=== PATIENT | female | born 1950 | race Hispanic/Latino ===

== ENCOUNTER 2017-04-24 17:41 | Emergency (ER) | payer MEDICARE, OTHER ==
[2017-04-24 18:57] LABS: BASOPHILS % (AUTO) 0.5 % (0.0-5.0); EOSINOPHILS % (AUTO) 0.1 % (0.0-8.0); LYMPHOCYTES % (AUTO) 13.4 % (21.0-51.0); MEAN CORPUSCULAR HEMOGLOBIN 19.3 pg (27.0-33.0); MEAN CORPUSCULAR HGB CONC 31.6 g/dL (32.0-36.0); MEAN CORPUSCULAR VOLUME 61.1 fL (79-99); MONOCYTES % (AUTO) 2.3 % (3.0-13.0); NEUTROPHILS % (AUTO) 83.7 % (40.0-77.0); PLATELET COUNT (AUTO) 289 K/uL (130-400); RED BLOOD CELL COUNT(AUTO) 5.08 MIL/uL (4.00-5.50); RED CELL DISTRIBUTION WIDTH 18.1 % (11.0-15.5); WHITE BLOOD COUNT (AUTO) 11.6 K/uL (4.8-10.8)
[2017-04-24] MEDS ORDERED: ONDANSETRON HCL 4 MG/2 ML VIAL ONE (19:04)
[2017-04-24 19:07] LABS: CREATININE 3.4 mg/dL (0.5-1.5); POTASSIUM 5.3 mmol/L (3.5-5.1)
[2017-04-24 19:13] LABS: INR 0.96 (0.85-1.15); PARTIAL THROMBOPLASTIN TIME 26.8 SEC (26.3-35.5); PROTHROMBIN TIME 10.1 SEC (9.6-11.6)
[2017-04-24 19:21] LABS: ALBUMIN 2.2 g/dL (3.5-5.0); BILIRUBIN,TOTAL 0.3 mg/dL (0.2-1.0); CREATINE KINASE MB 1.7 ng/mL (0.5-3.6); TOTAL PROTEIN, SERUM 6.8 g/dL (6.0-8.3)
[2017-04-24 19:58] LABS: APPEARANCE,URINE Clear (CLEAR); BILIRUBIN,URINE Negative (NEGATIVE); COLOR,URINE Yellow (YELLOW); GLUCOSE, URINE (UA) >=1000 mg/dL (NEGATIVE); KETONES,URINE 15 mg/dL (NEGATIVE); LEUKOCYTE ESTERASE ,URINE Negative (NEGATIVE); NITRATE,URINE Negative (NEGATIVE); OCCULT BLOOD,URINE Small (NEGATIVE); PROTEIN,URINE >=1000 (NEGATIVE); UROBILINOGEN,URINE 0.2 mg/dL (0.2-1.0)
[2017-04-24 20:19] LABS: BACTERIA,URINE Rare /HPF (None Seen); WBC,URINE 0-1 /HPF (0-1)
[2017-04-24 20:20] LABS: SQUAMOUS EPITHELIAL CELL,UR Rare /LPF (0-2)
== END 2017-04-24 23:40 | disposition home or self-care (01) ==
LOC: EDH 17:41
DX: D64.89 Other specified anemias (principal); N28.9 Disorder of kidney and ureter, unspecified; R11.2 Nausea with vomiting, unspecified; I10 Essential (primary) hypertension; R20.0 Anesthesia of skin
CPT/HCPCS: 36415; 70450; 71045; 80053; 81001; 82150; 82550; 82553; 83690; 83880; 84484; 85025; 85610; 85730; 87804 ×2; 96374; 99285; J2405

== ENCOUNTER → 2017-04-25 | Outpatient (CLI) | payer OTHER ==
[~2017-04-25] MED LIST: AMLO5TAB2 PO; ATOR10 PO; FOLI1TAB15 PO; FURO40TA5 PO; METO-409 PO
== END ==
LOC: OIH 11:32
PROVIDERS: ATTEND Family Medicine
DX: I10 Essential (primary) hypertension (principal)
CPT/HCPCS: 71046

== ENCOUNTER 2017-06-28 09:31 | Inpatient (IN) | payer OTHER ==
[~2017-06-28] VITALS: Ht 147.3 cm; Wt 49.3 kg
[2017-06-28] MEDS ORDERED: LABETALOL HCL 5 MG/ML 20ML VIAL IV ONE (10:11)
[2017-06-28 10:34] LABS: BASOPHILS % (AUTO) 1.2 % (0.0-5.0); EOSINOPHILS % (AUTO) 1.8 % (0.0-8.0); HEMATOCRIT 28.5 % (36-48); MEAN CORPUSCULAR HEMOGLOBIN 19.3 pg (27.0-33.0); MEAN CORPUSCULAR HGB CONC 31.5 g/dL (32.0-36.0); MEAN CORPUSCULAR VOLUME 61.5 fL (79-99); MONOCYTES % (AUTO) 5.8 % (3.0-13.0); NEUTROPHILS % (AUTO) 72.2 % (40.0-77.0); PLATELET COUNT (AUTO) 244 K/uL (130-400); RED BLOOD CELL COUNT(AUTO) 4.64 MIL/uL (4.00-5.50); RED CELL DISTRIBUTION WIDTH 17.3 % (11.0-15.5); WHITE BLOOD COUNT (AUTO) 7.9 K/uL (4.8-10.8)
[2017-06-28 10:47] LABS: B-TYPE NATRIURETIC PEPTIDE 200 pg/mL (0-100)
[2017-06-28 10:57] LABS: ALBUMIN 2.2 g/dL (3.5-5.0); BILIRUBIN,TOTAL 0.3 mg/dL (0.2-1.0); CREATINE KINASE MB 1.6 ng/mL (0.5-3.6); CREATININE 3.6 mg/dL (0.5-1.5); TOTAL PROTEIN, SERUM 6.4 g/dL (6.0-8.3)
[2017-06-28 11:05] LABS: POTASSIUM 6.2 mmol/L (3.5-5.1)
[2017-06-28] MEDS ORDERED: CALCIUM GLUCONATE 1 GM/10 ML VIAL IV ONE (11:39)
[2017-06-28] MEDS ORDERED: SODIUM POLYSTYRENE SULFONATE 15 GM/60 ML ML ONE (11:40)
[2017-06-28] MEDS ORDERED: SODIUM BICARB 50MEQ 50ML VIAL ONE (11:40)
[2017-06-28] MEDS ORDERED: SODIUM CHLORIDE 0.9% 50 ML IV ONE (11:41)
[2017-06-28] MEDS ORDERED: DEXTROSE 50%-WATER 50 ML DISP.SYRIN IV ONE (11:41)
[2017-06-28] MEDS ORDERED: INSULIN HUMULIN R 100 UNIT/ML 3ML ONE (11:42)
[2017-06-28] MEDS ORDERED: ONDANSETRON HCL MDV 20ML 2 MG/ML VIAL ONE (12:39)
[2017-06-28] MEDS ORDERED: PANTOPRAZOLE SODIUM 40 MG TABLET.DR PO ONE (16:39)
[2017-06-28 17:07] LABS: CREATININE 3.5 mg/dL (0.5-1.5); POTASSIUM 5.3 mmol/L (3.5-5.1)
[2017-06-28 17:10] LABS: ALBUMIN 1.9 g/dL (3.5-5.0); BILIRUBIN,TOTAL 0.3 mg/dL (0.2-1.0); TOTAL PROTEIN, SERUM 6.3 g/dL (6.0-8.3)
[2017-06-28 20:45] VITALS: BP 160/87
[2017-06-28] MEDS ORDERED: ATOR10 PO (21:44)
[2017-06-28] MEDS ORDERED: FOLI1TAB15 PO (21:44)
[2017-06-28] MEDS ORDERED: METO-409 PO (21:45)
[2017-06-28] MEDS ORDERED: AMLO5TAB2 PO (21:46)
[2017-06-28] MEDS ORDERED: FLU VACC QS2017-18 36MOS UP/PF 60 MCG/0.5 ML ML IM ONE (23:00)
[2017-06-29] VITALS (7 sets, daily range): BP systolic 149–162; BP diastolic 79–89
[2017-06-29 05:15] LABS: ALBUMIN 1.6 g/dL (3.5-5.0); BILIRUBIN,TOTAL 0.3 mg/dL (0.2-1.0); CREATININE 3.3 mg/dL (0.5-1.5); POTASSIUM 4.7 mmol/L (3.5-5.1); TOTAL PROTEIN, SERUM 5.4 g/dL (6.0-8.3)
[2017-06-29 06:09] LABS: MEAN CORPUSCULAR HEMOGLOBIN 19.4 pg (27.0-33.0); MEAN CORPUSCULAR HGB CONC 31.8 g/dL (32.0-36.0); MEAN CORPUSCULAR VOLUME 61.1 fL (79-99); PLATELET COUNT (AUTO) 195 K/uL (130-400); RED CELL DISTRIBUTION WIDTH 17.5 % (11.0-15.5); WHITE BLOOD COUNT (AUTO) 6.1 K/uL (4.8-10.8)
[2017-06-29 06:17] LABS: HEMATOCRIT 24.4 % (36-48)
[2017-06-29] MEDS ORDERED: DiphenhydrAMINE HCL 50 MG/ML VIAL IVP PRN (22:00)
[2017-06-29] MEDS ORDERED: LIDOCAINE HCL-MPF 1% 2ML VIAL IJ PRN (22:00)
[2017-06-29] MEDS ORDERED: POTASSIUM CHLORIDE 20 MEQ ERTAB PO PRN (22:00)
[2017-06-29] MEDS ORDERED: ZOLPIDEM TARTRATE 5 MG TAB PO PRN (22:00)
[2017-06-29] MEDS ORDERED: ONDANSETRON HCL 4 MG/2 ML VIAL IVP PRN (22:00)
[2017-06-29] MEDS ORDERED: ACETAMINOPHEN 325 MG TAB PO PRN ×2 (22:00)
[2017-06-29] MEDS ORDERED: MAG HYDROX/AL HYDROX/SIMETH ES 30 ML SUSP UDCUP PO PRN (22:00)
[2017-06-29] MEDS ORDERED: SODIUM CHLORIDE 0.9% 1000ML 1,000 ML IV SCH (22:00)
[2017-06-29] MEDS ORDERED: DEXTROSE 50%-WATER 50 ML DISP.SYRIN IV PRN (22:00)
[2017-06-29] MEDS ORDERED: DIPHENHYDRAMINE HCL 25 MG CAPSULE PO PRN (22:00)
[2017-06-29] MEDS ORDERED: NITROGLYCERIN 0.4 MG SL TAB SL PRN (22:00)
[2017-06-29] MEDS ORDERED: GLUCAGON 1MG KIT 1 MG ML IM PRN (22:00)
[2017-06-29] MEDS ORDERED: POTASSIUM CHLORIDE 10% ELIXIR 20 MEQ/15 ML UDCUP PO PRN (22:00)
[2017-06-29] MEDS ORDERED: LACTULOSE 20 GM/30 ML UDCUP PO PRN (22:00)
[2017-06-29] MEDS ORDERED: POTASSIUM CHLORIDE 20MEQ/100ML 100 ML IV PRN (22:00)
[2017-06-30] VITALS (12 sets, daily range): BP systolic 156–208; BP diastolic 79–98
[2017-06-30 04:35] LABS: BASOPHILS % (AUTO) 0.7 % (0.0-5.0); EOSINOPHILS % (AUTO) 3.5 % (0.0-8.0); HEMATOCRIT 24.4 % (36-48); LYMPHOCYTES % (AUTO) 18.9 % (21.0-51.0); MEAN CORPUSCULAR HEMOGLOBIN 20.3 pg (27.0-33.0); MEAN CORPUSCULAR VOLUME 61.6 fL (79-99); MONOCYTES % (AUTO) 7.6 % (3.0-13.0); NEUTROPHILS % (AUTO) 69.3 % (40.0-77.0); PLATELET COUNT (AUTO) 205 K/uL (130-400); RED BLOOD CELL COUNT(AUTO) 3.97 MIL/uL (4.00-5.50); RED CELL DISTRIBUTION WIDTH 17.2 % (11.0-15.5); WHITE BLOOD COUNT (AUTO) 6.1 K/uL (4.8-10.8)
[2017-06-30 04:41] LABS: INR 0.93 (0.85-1.15); PROTHROMBIN TIME 9.8 SEC (9.6-11.6)
[2017-06-30 05:08] LABS: ALBUMIN 1.7 g/dL (3.5-5.0); BILIRUBIN,TOTAL 0.2 mg/dL (0.2-1.0); CREATININE 3.2 mg/dL (0.5-1.5); POTASSIUM 4.7 mmol/L (3.5-5.1); TOTAL PROTEIN, SERUM 5.8 g/dL (6.0-8.3)
[2017-06-30] MEDS: INSULIN R PO SSI SQ SCH ×4 (07:30→21:00)
[2017-06-30] MEDS ORDERED: LIDOCAINE HCL 1% 20 ML VIAL ONE (11:30)
[2017-06-30] MEDS: PANTOPRAZOLE SODIUM 40 MG TABLET.DR PO SCH (14:54)
[2017-07-01 03:53] VITALS: BP 158/90
[2017-07-01 05:49] LABS: BASOPHILS % (AUTO) 1.1 % (0.0-5.0); EOSINOPHILS % (AUTO) 3.8 % (0.0-8.0); HEMATOCRIT 23.9 % (36-48); LYMPHOCYTES % (AUTO) 19.6 % (21.0-51.0); MEAN CORPUSCULAR HEMOGLOBIN 19.8 pg (27.0-33.0); MEAN CORPUSCULAR HGB CONC 32.2 g/dL (32.0-36.0); MEAN CORPUSCULAR VOLUME 61.3 fL (79-99); MONOCYTES % (AUTO) 7.6 % (3.0-13.0); NEUTROPHILS % (AUTO) 67.9 % (40.0-77.0); PLATELET COUNT (AUTO) 208 K/uL (130-400); RED CELL DISTRIBUTION WIDTH 17.4 % (11.0-15.5); WHITE BLOOD COUNT (AUTO) 6.2 K/uL (4.8-10.8)
[2017-07-01 06:12] LABS: ALBUMIN 1.5 g/dL (3.5-5.0); BILIRUBIN,TOTAL 0.2 mg/dL (0.2-1.0); CREATININE 3.2 mg/dL (0.5-1.5); POTASSIUM 4.6 mmol/L (3.5-5.1); TOTAL PROTEIN, SERUM 5.2 g/dL (6.0-8.3)
[2017-07-01] MEDS: INSULIN R PO SSI SQ SCH ×4 (06:32→21:00)
[2017-07-01 07:00] VITALS: BP 154/89
[2017-07-01] MEDS: PANTOPRAZOLE SODIUM 40 MG TABLET.DR PO SCH (09:13)
[2017-07-01 11:00] VITALS: BP 160/91
[2017-07-01] MEDS: FLU VACC QS2017-18 36MOS UP/PF 60 MCG/0.5 ML ML IM SCH (11:45)
[2017-07-01 16:00] VITALS: BP 135/75
[2017-07-01] MEDS ORDERED: ATORVASTATIN CALCIUM 10 MG TABLET PO SCH (21:00)
[2017-07-01 21:11] VITALS: BP 180/92
[2017-07-02 00:02] VITALS: BP 158/91
[2017-07-02 04:00] VITALS: BP 175/95
[2017-07-02] MEDS: INSULIN R PO SSI SQ SCH (06:57)
[2017-07-02 07:00] VITALS: BP 167/94
[2017-07-02] MEDS ORDERED: AMLODIPINE BESYLATE 5 MG TAB PO SCH (09:00)
[2017-07-02] MEDS ORDERED: Metoprolol Succinate 100 MG PO SCH (09:00)
[2017-07-02] MEDS ORDERED: FOLIC ACID 1 MG TABLET PO SCH (09:00)
[2017-07-02] MEDS: FLU VACC QS2017-18 36MOS UP/PF 60 MCG/0.5 ML ML IM SCH (09:30)
[2017-07-02] MEDS: PANTOPRAZOLE SODIUM 40 MG TABLET.DR PO SCH (10:39)
[2017-07-02 11:00] VITALS: BP 165/93
== END 2017-07-02 19:25 | disposition home or self-care (01) | DRG 683 ==
LOC: EDH 09:31 → EDHIP 12:35 → OBSVTOIN 12:35 → 3DH 20:15
PROVIDERS: ADMIT Family Medicine; ATTEND Family Medicine
PROC: 0W983ZZ Drainage of Chest Wall, Percutaneous Approach (ICD-10-PCS; principal; 2017-06-30)
PROC: 0W993ZZ Drainage of Right Pleural Cavity, Percutaneous Approach (ICD-10-PCS; 2017-06-30)
PROC: 3E0234Z Introduction of Serum, Toxoid and Vaccine into Muscle, Percutaneous Approach (ICD-10-PCS; 2017-06-30)
DX: N17.9 Acute kidney failure, unspecified (principal); I13.0 Hypertensive heart and chronic kidney disease with heart failure and stage 1 through stage 4 chronic kidney disease, or unspecified chronic kidney disease; E44.0 Moderate protein-calorie malnutrition; E11.22 Type 2 diabetes mellitus with diabetic chronic kidney disease; E11.42 Type 2 diabetes mellitus with diabetic polyneuropathy; N18.9 Chronic kidney disease, unspecified; E87.5 Hyperkalemia; J44.9 Chronic obstructive pulmonary disease, unspecified; E78.5 Hyperlipidemia, unspecified; E11.51 Type 2 diabetes mellitus with diabetic peripheral angiopathy without gangrene; E86.0 Dehydration; I50.9 Heart failure, unspecified; J84.10 Pulmonary fibrosis, unspecified; Z23 Encounter for immunization
CPT/HCPCS: 10022; 36415; 71045; 71250; 76942; 78306; 80053; 82550; 82553; 82948; 83880; 84484; 85025; 85027; 85610; 88108; 88305; 93005; 99291; A9503; G0008; J0610; J1815; J3490; J7070; Q2038

== ENCOUNTER 2017-07-25 18:27 | Inpatient (IN) | payer OTHER ==
[~2017-07-25] VITALS: Ht 147.3 cm; Wt 47.3 kg
[~2017-07-25 18:27] MED LIST changes: -FURO40TA5 PO
[2017-07-25 19:05] LABS: CREATININE 4.4 mg/dL (0.5-1.5); POTASSIUM 5.8 mmol/L (3.5-5.1)
[2017-07-25 19:09] LABS: ALBUMIN 2.1 g/dL (3.5-5.0); BILIRUBIN,DIRECT 0.1 mg/dL (0.0-0.3); BILIRUBIN,TOTAL 0.3 mg/dL (0.2-1.0); TOTAL PROTEIN, SERUM 6.8 g/dL (6.0-8.3)
[2017-07-25 19:14] LABS: B-TYPE NATRIURETIC PEPTIDE 688 pg/mL (0-100)
[2017-07-25] MEDS ORDERED: SODIUM POLYSTYRENE SULFONATE 15 GM/60 ML ML ONE (19:19)
[2017-07-25 19:23] LABS: INR 0.97 (0.85-1.15); PARTIAL THROMBOPLASTIN TIME 26.2 SEC (26.3-35.5); PROTHROMBIN TIME 10.2 SEC (9.6-11.6)
[2017-07-25] MEDS ORDERED: CALCIUM GLUCONATE 1 GM/10 ML VIAL IV ONE (19:27)
[2017-07-25] MEDS ORDERED: SODIUM BICARB 50MEQ 50ML VIAL ONE (19:28)
[2017-07-25] MEDS ORDERED: DEXTROSE 5%-WATER 500 ML IV ONE (19:34)
[2017-07-25 19:37] LABS: BASOPHILS % (AUTO) 1.2 % (0.0-5.0); EOSINOPHILS % (AUTO) 2.1 % (0.0-8.0); HEMATOCRIT 28.4 % (36-48); LYMPHOCYTES % (AUTO) 24.8 % (21.0-51.0); MEAN CORPUSCULAR HEMOGLOBIN 19.4 pg (27.0-33.0); MEAN CORPUSCULAR HGB CONC 31.4 g/dL (32.0-36.0); MEAN CORPUSCULAR VOLUME 61.8 fL (79-99); MONOCYTES % (AUTO) 5.5 % (3.0-13.0); NEUTROPHILS % (AUTO) 66.4 % (40.0-77.0); NUCLEATED RED BLOOD CELLS 0.1 % (0.0-0.19); PLATELET COUNT (AUTO) 239 K/uL (130-400); RED BLOOD CELL COUNT(AUTO) 4.59 MIL/uL (4.00-5.50); RED CELL DISTRIBUTION WIDTH 17.7 % (11.0-15.5); WHITE BLOOD COUNT (AUTO) 8.2 K/uL (4.8-10.8)
[2017-07-25 19:43] LABS: APPEARANCE,URINE Clear (CLEAR); BILIRUBIN,URINE Negative (NEGATIVE); COLOR,URINE Yellow (YELLOW); GLUCOSE, URINE (UA) TRACE mg/dL (NEGATIVE); KETONES,URINE Negative (NEGATIVE); LEUKOCYTE ESTERASE ,URINE Negative (NEGATIVE); NITRATE,URINE Negative (NEGATIVE); OCCULT BLOOD,URINE Small (NEGATIVE); PROTEIN,URINE >=1000 (NEGATIVE); UROBILINOGEN,URINE 0.2 mg/dL (0.2-1.0)
[2017-07-25 19:56] LABS: BACTERIA,URINE Few /HPF (None Seen); SQUAMOUS EPITHELIAL CELL,UR Rare /HPF (0-2); WBC,URINE 0-1 /HPF (0-1)
[2017-07-25] MEDS ORDERED: INSULIN HUMULIN R 100 UNIT/ML 3ML ONE (20:04)
[2017-07-25] MEDS ORDERED: DEXTROSE 50%-WATER 50 ML DISP.SYRIN IV ONE (20:04)
[2017-07-25] MEDS ORDERED: ONDANSETRON HCL MDV 20ML 2 MG/ML VIAL ONE (20:14)
[2017-07-25] MEDS ORDERED: SODIUM CHLORIDE 0.9% 1000ML 1,000 ML IV SCH (21:30)
[2017-07-26 03:30] VITALS: BP 132/68
[2017-07-26 04:26] LABS: BASOPHILS % (AUTO) 1.2 % (0.0-5.0); EOSINOPHILS % (AUTO) 1.9 % (0.0-8.0); HEMATOCRIT 24.6 % (36-48); LYMPHOCYTES % (AUTO) 23.4 % (21.0-51.0); MEAN CORPUSCULAR HEMOGLOBIN 19.7 pg (27.0-33.0); MEAN CORPUSCULAR HGB CONC 32.2 g/dL (32.0-36.0); MEAN CORPUSCULAR VOLUME 61.2 fL (79-99); MONOCYTES % (AUTO) 8.4 % (3.0-13.0); NEUTROPHILS % (AUTO) 65.1 % (40.0-77.0); PLATELET COUNT (AUTO) 215 K/uL (130-400); RED BLOOD CELL COUNT(AUTO) 4.03 MIL/uL (4.00-5.50); RED CELL DISTRIBUTION WIDTH 17.5 % (11.0-15.5); WHITE BLOOD COUNT (AUTO) 6.4 K/uL (4.8-10.8)
[2017-07-26 04:38] LABS: ALBUMIN 1.8 g/dL (3.5-5.0); BILIRUBIN,TOTAL 0.3 mg/dL (0.2-1.0); CREATININE 4.3 mg/dL (0.5-1.5); POTASSIUM 4.7 mmol/L (3.5-5.1); TOTAL PROTEIN, SERUM 5.9 g/dL (6.0-8.3)
[2017-07-26] MEDS ORDERED: FURO40TA5 PO (04:52)
[2017-07-26 07:53] VITALS: BP 143/68
[2017-07-26] MEDS: PANTOPRAZOLE SODIUM 40 MG TABLET.DR PO SCH (10:44)
[2017-07-26] MEDS ORDERED: LIDOCAINE HCL 1% 20 ML VIAL ONE (10:48)
[2017-07-26 12:52] LABS: INR 1.01 (0.85-1.15); PARTIAL THROMBOPLASTIN TIME 27.1 SEC (26.3-35.5); PROTHROMBIN TIME 10.6 SEC (9.6-11.6)
[2017-07-26] MEDS: FUROSEMIDE 10 MG/ML 4ML VIAL IV SCH (15:54)
[2017-07-26 16:28] VITALS: BP 136/68
[2017-07-26 19:54] VITALS: BP 131/64
[2017-07-26 23:29] VITALS: BP 140/68
[2017-07-27] MEDS: FUROSEMIDE 10 MG/ML 4ML VIAL IV SCH ×2 (03:09→12:54)
[2017-07-27 04:15] VITALS: BP 143/69
[2017-07-27 05:23] LABS: HEMATOCRIT 24.1 % (36-48); MEAN CORPUSCULAR HEMOGLOBIN 19.8 pg (27.0-33.0); MEAN CORPUSCULAR HGB CONC 32.4 g/dL (32.0-36.0); MEAN CORPUSCULAR VOLUME 61.2 fL (79-99); PLATELET COUNT (AUTO) 214 K/uL (130-400); RED BLOOD CELL COUNT(AUTO) 3.94 MIL/uL (4.00-5.50); RED CELL DISTRIBUTION WIDTH 17.6 % (11.0-15.5); WHITE BLOOD COUNT (AUTO) 6.5 K/uL (4.8-10.8)
[2017-07-27 05:33] LABS: PARTIAL THROMBOPLASTIN TIME 27.5 SEC (26.3-35.5); PROTHROMBIN TIME 10.5 SEC (9.6-11.6)
[2017-07-27 05:36] LABS: BAND NEUTROPHILS % (MANUAL) 8 % (0-2); EOSINOPHILS % (MANUAL) 2 % (1-6); LYMPHOCYTES % (MANUAL) 11 % (22-44); MAN.DIFF COMMENT-IMPRESSION MANUAL DIFFERENTIAL; MONOCYTES % (MANUAL) 2 % (2-9); PLATELET MORPHOLOGY COMMENT ADEQUATE; SEGMENTED NEUTROPHILS % 77 % (40-70)
[2017-07-27 05:39] LABS: ALBUMIN 1.7 g/dL (3.5-5.0); BILIRUBIN,TOTAL 0.2 mg/dL (0.2-1.0); CREATININE 4.6 mg/dL (0.5-1.5); PHOSPHORUS 5.2 mg/dL (2.5-4.9); POTASSIUM 4.7 mmol/L (3.5-5.1); TOTAL PROTEIN, SERUM 5.8 g/dL (6.0-8.3)
[2017-07-27 07:30] VITALS: BP 145/70
[2017-07-27] MEDS: PANTOPRAZOLE SODIUM 40 MG TABLET.DR PO SCH (08:59)
[2017-07-27] MEDS ORDERED: EPOETIN ALFA 20,000 UNIT/ML VIAL SQ SCH (09:00)
[2017-07-27] MEDS ORDERED: COMPOUND IV MISC 1 EACH IVSOLN MISC PRN (10:00)
[2017-07-27 11:00] VITALS: BP 153/69
[2017-07-27] MEDS: IRON SUCROSE COMPLEX 100 MG in SODIUM CHLORIDE 0.9% 50 ML IV SCH (12:51)
[2017-07-27] MEDS ORDERED: COMPOUND IV REFRIGERATED 1 EACH IVSOLN MISC PRN (14:00)
[2017-07-27] MEDS: EPOETIN ALFA 20,000 UNIT/ML VIAL SQ SCH (15:31)
[2017-07-27 16:00] VITALS: BP 149/69
[2017-07-27 20:00] VITALS: BP 159/67
[2017-07-28] VITALS: BP 152/68
[2017-07-28] MEDS: FUROSEMIDE 10 MG/ML 4ML VIAL IV SCH ×2 (02:31→08:03)
[2017-07-28 04:00] VITALS: BP 162/73
[2017-07-28 05:11] LABS: HEMATOCRIT 23.8 % (36-48); MEAN CORPUSCULAR HEMOGLOBIN 19.7 pg (27.0-33.0); MEAN CORPUSCULAR HGB CONC 32.2 g/dL (32.0-36.0); MEAN CORPUSCULAR VOLUME 61.2 fL (79-99); PLATELET COUNT (AUTO) 212 K/uL (130-400); RED BLOOD CELL COUNT(AUTO) 3.89 MIL/uL (4.00-5.50); RED CELL DISTRIBUTION WIDTH 17.2 % (11.0-15.5); WHITE BLOOD COUNT (AUTO) 6.3 K/uL (4.8-10.8)
[2017-07-28 05:20] LABS: EOSINOPHILS % (MANUAL) 3 % (1-6); LYMPHOCYTES % (MANUAL) 17 % (22-44); MAN.DIFF COMMENT-IMPRESSION MANUAL DIFFERENTIAL; MONOCYTES % (MANUAL) 3 % (2-9); PLATELET MORPHOLOGY COMMENT ADEQUATE; SEGMENTED NEUTROPHILS % 77 % (40-70)
[2017-07-28 05:25] LABS: ALBUMIN 1.7 g/dL (3.5-5.0); BILIRUBIN,TOTAL 0.3 mg/dL (0.2-1.0); CREATININE 4.6 mg/dL (0.5-1.5); POTASSIUM 4.7 mmol/L (3.5-5.1); TOTAL PROTEIN, SERUM 5.6 g/dL (6.0-8.3)
[2017-07-28] MEDS: EPOETIN ALFA 20,000 UNIT/ML VIAL SQ SCH (07:56)
[2017-07-28 08:02] VITALS: BP 196/81
[2017-07-28] MEDS: PANTOPRAZOLE SODIUM 40 MG TABLET.DR PO SCH (08:03)
[2017-07-28] MEDS: IRON SUCROSE COMPLEX 100 MG in SODIUM CHLORIDE 0.9% 50 ML IV SCH (08:03)
[2017-07-28 10:04] VITALS: BP 154/78
[2017-07-28] MEDS ORDERED: CLONIDINE HCL 0.2 MG TABLET PO PRN (10:45)
[2017-07-28 16:00] VITALS: BP 154/84
[2017-07-28] MEDS: FUROSEMIDE 40 MG TABLET PO SCH (16:37)
[2017-07-28 20:00] VITALS: BP 153/73
[2017-07-29] VITALS (13 sets, daily range): BP systolic 141–172; BP diastolic 64–84
[2017-07-29 04:27] LABS: BASOPHILS % (AUTO) 0.9 % (0.0-5.0); EOSINOPHILS % (AUTO) 4.7 % (0.0-8.0); HEMATOCRIT 22.9 % (36-48); LYMPHOCYTES % (AUTO) 30.3 % (21.0-51.0); MEAN CORPUSCULAR HGB CONC 32.4 g/dL (32.0-36.0); MEAN CORPUSCULAR VOLUME 61.7 fL (79-99); MONOCYTES % (AUTO) 9.6 % (3.0-13.0); NEUTROPHILS % (AUTO) 54.5 % (40.0-77.0); NUCLEATED RED BLOOD CELLS 0.1 % (0.0-0.19); PLATELET COUNT (AUTO) 199 K/uL (130-400); RED BLOOD CELL COUNT(AUTO) 3.72 MIL/uL (4.00-5.50); RED CELL DISTRIBUTION WIDTH 17.1 % (11.0-15.5); WHITE BLOOD COUNT (AUTO) 6.1 K/uL (4.8-10.8)
[2017-07-29 04:41] LABS: INR 1.02 (0.85-1.15); PARTIAL THROMBOPLASTIN TIME 28.6 SEC (26.3-35.5); PROTHROMBIN TIME 10.7 SEC (9.6-11.6)
[2017-07-29 04:49] LABS: ALBUMIN 1.6 g/dL (3.5-5.0); BILIRUBIN,TOTAL 0.3 mg/dL (0.2-1.0); CREATININE 4.1 mg/dL (0.5-1.5); POTASSIUM 4.7 mmol/L (3.5-5.1); TOTAL PROTEIN, SERUM 5.4 g/dL (6.0-8.3)
[2017-07-29] MEDS: IRON SUCROSE COMPLEX 100 MG in SODIUM CHLORIDE 0.9% 50 ML IV SCH (09:14)
[2017-07-29] MEDS ORDERED: FENTANYL CITRATE PF 50 MCG/1 ML 2ML VIAL ONE (10:31)
[2017-07-29] MEDS: AMLODIPINE BESYLATE 5 MG TAB PO SCH (11:21)
[2017-07-29] MEDS: FUROSEMIDE 40 MG TABLET PO SCH ×2 (11:21→19:02)
[2017-07-29] MEDS: PANTOPRAZOLE SODIUM 40 MG TABLET.DR PO SCH (11:21)
[2017-07-30 01:04] VITALS: BP 142/69
[2017-07-30 01:16] VITALS: BP 152/75
[2017-07-30 04:34] VITALS: BP 155/74
[2017-07-30 08:08] VITALS: BP 173/85
[2017-07-30] MEDS: AMLODIPINE BESYLATE 5 MG TAB PO SCH (08:44)
[2017-07-30] MEDS: PANTOPRAZOLE SODIUM 40 MG TABLET.DR PO SCH (08:44)
[2017-07-30] MEDS: FUROSEMIDE 40 MG TABLET PO SCH ×2 (08:44→17:57)
[2017-07-30] MEDS: IRON SUCROSE COMPLEX 100 MG in SODIUM CHLORIDE 0.9% 50 ML IV SCH (08:44)
[2017-07-30] MEDS ORDERED: ASPIRIN 81MG TAB.CHEW PO SCH (11:15)
[2017-07-30 11:38] VITALS: BP 142/69
[2017-07-30 16:21] VITALS: BP 133/61
== END 2017-07-30 18:12 | disposition home or self-care (01) | DRG 683 ==
LOC: EDH 18:27 → EDHIP 21:15 → OBSVTOIN 21:15 → 4BH 07-26 04:43
PROVIDERS: ADMIT Family Medicine; ATTEND Family Medicine
PROC: 0W9B4ZX Drainage of Left Pleural Cavity, Percutaneous Endoscopic Approach, Diagnostic (ICD-10-PCS; principal; 2017-07-29)
DX: N17.9 Acute kidney failure, unspecified (principal); E44.1 Mild protein-calorie malnutrition; E11.21 Type 2 diabetes mellitus with diabetic nephropathy; I12.9 Hypertensive chronic kidney disease with stage 1 through stage 4 chronic kidney disease, or unspecified chronic kidney disease; E87.5 Hyperkalemia; E87.70 Fluid overload, unspecified; E11.22 Type 2 diabetes mellitus with diabetic chronic kidney disease; N18.9 Chronic kidney disease, unspecified; Z82.49 Family history of ischemic heart disease and other diseases of the circulatory system; Z83.3 Family history of diabetes mellitus; Z98.51 Tubal ligation status
CPT/HCPCS: 36415; 71045; 71250; 76705; 76770; 77012; 80048; 80053; 80076; 81001; 82550; 82948; 83540; 83550; 83690; 83880; 83883; 84100; 84484; 85025; 85610; 85730; 86334; 87040; 87088; 88305; 93005; 93971; 99291; J0610; J0885; J1756; J1815; J1940; J3010; J3490; J7060; J7070

== ENCOUNTER → 2017-08-05 | Outpatient (CLI) | payer OTHER ==
[~2017-08-05] MED LIST changes: +FURO40TA5 PO
== END | disposition home or self-care (01) ==
LOC: RAH 11:13
PROVIDERS: ATTEND Family Medicine
DX: Z12.31 Encounter for screening mammogram for malignant neoplasm of breast (principal)
CPT/HCPCS: 77067

== ENCOUNTER 2017-08-19 15:22 | Emergency (ER) | payer OTHER ==
[2017-08-19 16:05] LABS: BASOPHILS % (AUTO) 1.7 % (0.0-5.0); EOSINOPHILS % (AUTO) 2.8 % (0.0-8.0); HEMATOCRIT 25.8 % (36-48); LYMPHOCYTES % (AUTO) 17.6 % (21.0-51.0); MEAN CORPUSCULAR HEMOGLOBIN 20.2 pg (27.0-33.0); MEAN CORPUSCULAR HGB CONC 32.1 g/dL (32.0-36.0); MEAN CORPUSCULAR VOLUME 62.8 fL (79-99); MONOCYTES % (AUTO) 8.3 % (3.0-13.0); NEUTROPHILS % (AUTO) 69.6 % (40.0-77.0); NUCLEATED RED BLOOD CELLS 0.1 % (0.0-0.19); PLATELET COUNT (AUTO) 231 K/uL (130-400); RED BLOOD CELL COUNT(AUTO) 4.11 MIL/uL (4.00-5.50); WHITE BLOOD COUNT (AUTO) 5.8 K/uL (4.8-10.8)
[2017-08-19 16:15] LABS: CREATININE 5.2 mg/dL (0.5-1.5); POTASSIUM 5.3 mmol/L (3.5-5.1)
[2017-08-19 16:17] LABS: INR 1.02 (0.85-1.15); PARTIAL THROMBOPLASTIN TIME 29.6 SEC (26.3-35.5); PROTHROMBIN TIME 10.7 SEC (9.6-11.6)
[2017-08-19 16:30] LABS: ALBUMIN 2.2 g/dL (3.5-5.0); BILIRUBIN,TOTAL 0.4 mg/dL (0.2-1.0); CREATINE KINASE MB 1.3 ng/mL (0.5-3.6); TOTAL PROTEIN, SERUM 6.5 g/dL (6.0-8.3)
[2017-08-19 17:11] LABS: APPEARANCE,URINE Clear (CLEAR); BILIRUBIN,URINE Negative (NEGATIVE); COLOR,URINE Yellow (YELLOW); GLUCOSE, URINE (UA) Negative (NEGATIVE); KETONES,URINE Negative (NEGATIVE); LEUKOCYTE ESTERASE ,URINE Negative (NEGATIVE); NITRATE,URINE Negative (NEGATIVE); OCCULT BLOOD,URINE Small (NEGATIVE); PROTEIN,URINE 300 (NEGATIVE); UROBILINOGEN,URINE 0.2 mg/dL (0.2-1.0)
[2017-08-19 17:25] LABS: RBC,URINE 0-1 /HPF (0-1)
[2017-08-19 17:26] LABS: BACTERIA,URINE Few /HPF (None Seen)
[2017-08-19 17:27] LABS: SQUAMOUS EPITHELIAL CELL,UR Rare /HPF (0-2)
[2017-08-19] MEDS ORDERED: TRAMADOL HCL 50 MG TABLET ONE (17:44)
== END 2017-08-19 18:15 | disposition home or self-care (01) ==
LOC: EDH 15:22
DX: R07.1 Chest pain on breathing (principal); I12.0 Hypertensive chronic kidney disease with stage 5 chronic kidney disease or end stage renal disease; N18.6 End stage renal disease; M54.6 Pain in thoracic spine; R51 Headache; R11.2 Nausea with vomiting, unspecified; E78.5 Hyperlipidemia, unspecified; Z99.2 Dependence on renal dialysis; W10.8XXA Fall (on) (from) other stairs and steps, initial encounter; Y93.89 Activity, other specified; Y92.89 Other specified places as the place of occurrence of the external cause; Y99.8 Other external cause status
CPT/HCPCS: 36415; 70450; 71045; 71250; 72125; 80053; 81001; 82550; 82553; 84484; 85025; 85610; 85730; 93005; 99291

== ENCOUNTER 2019-09-20 10:48 | Emergency (ER) | payer OTHER ==
[2019-09-20] MEDS ORDERED: ONDANSETRON HCL 4 MG/2 ML VIAL ONE (12:19)
== END 2019-09-20 16:05 | disposition home or self-care (01) ==
LOC: EDH 10:48
DX: U07.1 COVID-19 (principal); R19.7 Diarrhea, unspecified; E78.5 Hyperlipidemia, unspecified; I10 Essential (primary) hypertension
CPT/HCPCS: 36415; 71045; 80053; 81001; 82550; 83605; 83690; 83880; 84484; 85025; 87804 ×2; 93005; 96374; 99285; J2405; U0003

== ENCOUNTER 2019-10-29 10:46 | Inpatient (IN) | payer OTHER ==
[~2019-10-29] VITALS: Ht 152.4 cm; Wt 43.6 kg
[~2019-10-29 10:46] MED LIST changes: -AMLO5TAB2 PO; +AMLO5TAB9 PO; -FURO40TA5 PO
[2019-10-29] MEDS ORDERED: ZOSYN 3.375GM+NS 50ML 50 ML IV ONE (10:59)
[2019-10-29] MEDS ORDERED: METHYLPREDNISOLONE SOD SUCC 40MG/ML 1ML ONE (10:59)
[2019-10-29] MEDS ORDERED: ONDANSETRON HCL 4 MG/2 ML VIAL ONE (10:59)
[2019-10-29] MEDS ORDERED: ACETAMINOPHEN EXTRA STRENGTH 500 MG TABLET ONE (11:00)
[2019-10-29] MEDS ORDERED: SODIUM CHLORIDE 0.9% 250 ML IV ONE (11:05)
[2019-10-29 11:25] LABS: BASOPHILS % (AUTO) 0.5 % (0.0-5.0); EOSINOPHILS % (AUTO) 0.8 % (0.0-8.0); HEMATOCRIT 22.5 % (36-48); LYMPHOCYTES % (AUTO) 9.9 % (21.0-51.0); MEAN CORPUSCULAR HEMOGLOBIN 22.4 pg (27.0-33.0); MEAN CORPUSCULAR HGB CONC 31.6 g/dL (32.0-36.0); MONOCYTES % (AUTO) 5.6 % (3.0-13.0); NEUTROPHILS % (AUTO) 78.5 % (40.0-77.0); PLATELET COUNT (AUTO) 202 K/uL (130-400); RED BLOOD CELL COUNT(AUTO) 3.17 MIL/uL (4.00-5.50); RED CELL DISTRIBUTION WIDTH 19.8 % (11.0-15.5); WHITE BLOOD COUNT (AUTO) 10.9 K/uL (4.8-10.8)
[2019-10-29 11:47] LABS: INR 1.16 (0.85-1.15); PARTIAL THROMBOPLASTIN TIME 28.7 SEC (26.3-35.5); PROTHROMBIN TIME 12.5 SEC (9.6-11.6)
[2019-10-29 12:33] LABS: POTASSIUM 5.2 mmol/L (3.5-5.1)
[2019-10-29 12:34] LABS: ALBUMIN 1.9 g/dL (3.5-5.0); BILIRUBIN,TOTAL 1.3 mg/dL (0.2-1.0); CREATININE 7.3 mg/dL (0.5-1.5); TOTAL PROTEIN, SERUM 5.5 g/dL (6.0-8.3); TROPONIN I 0.1 ng/mL (0.00-0.06)
[2019-10-29 12:59] LABS: BAND NEUTROPHILS % (MANUAL) 1 % (0-2); BASOPHILS % (MANUAL) 1 % (0-2); EOSINOPHILS % (MANUAL) 1 % (1-6); LYMPHOCYTES % (MANUAL) 12 % (22-44); MAN.DIFF COMMENT-IMPRESSION MANUAL DIFFERENTIAL; MONOCYTES % (MANUAL) 3 % (2-9); PLATELET MORPHOLOGY COMMENT ADEQUATE; SEGMENTED NEUTROPHILS % 82 % (40-70)
[2019-10-29] MEDS ORDERED: ACETAMINOPHEN-CODEINE 300/30MG TAB PO PRN (14:15)
[2019-10-29] MEDS ORDERED: LACTULOSE 20 GM/30 ML UDCUP PO PRN (14:15)
[2019-10-29] MEDS ORDERED: ACETAMINOPHEN 325 MG TAB PO PRN (14:15)
[2019-10-29] MEDS ORDERED: ONDANSETRON HCL 4 MG/2 ML VIAL IV PRN (14:15)
[2019-10-29] MEDS ORDERED: NITROGLYCERIN 0.4 MG SL TAB SL PRN (14:15)
[2019-10-29] MEDS ORDERED: VANCOMYCIN PROTOCOL PER PHARMACY IV PRN (14:15)
[2019-10-29] MEDS ORDERED: HYDROMORPHONE HCL 0.5 MG/0.5 ML ML IV PRN (14:15)
[2019-10-29] MEDS ORDERED: DiphenhydrAMINE HCL 50 MG/ML VIAL IV PRN (14:15)
[2019-10-29] MEDS: VANCOMYCIN 750MG + NS 250 ML IV SCH ×2 (15:00)
[2019-10-29] MEDS ORDERED: HYDRALAZINE HCL 20 MG/ML VIAL IV PRN (15:00)
[2019-10-29] MEDS ORDERED: COMPOUND IV REFRIGERATED 1 EACH IVSOLN MISC PRN (15:00)
[2019-10-29] MEDS: HEPARIN SODIUM 5000UNIT/ML 1ML VIAL SQ SCH (21:00)
[2019-10-29] MEDS: ZOSYN 3.375GM+NS 50ML 50 ML IV SCH (21:00)
[2019-10-29 22:00] VITALS: BP 166/73
[2019-10-30 03:23] LABS: BASOPHILS % (AUTO) 0.5 % (0.0-5.0); HEMATOCRIT 29.2 % (36-48); LYMPHOCYTES % (AUTO) 5.7 % (21.0-51.0); MEAN CORPUSCULAR HEMOGLOBIN 24.7 pg (27.0-33.0); MEAN CORPUSCULAR HGB CONC 33.2 g/dL (32.0-36.0); MEAN CORPUSCULAR VOLUME 74.3 fL (79-99); MONOCYTES % (AUTO) 4.6 % (3.0-13.0); NEUTROPHILS % (AUTO) 85.3 % (40.0-77.0); NUCLEATED RED BLOOD CELLS 16.9 % (0.0-0.19); PLATELET COUNT (AUTO) 168 K/uL (130-400); RED BLOOD CELL COUNT(AUTO) 3.93 MIL/uL (4.00-5.50); RED CELL DISTRIBUTION WIDTH 21.2 % (11.0-15.5); WHITE BLOOD COUNT (AUTO) 8.2 K/uL (4.8-10.8)
[2019-10-30 03:37] LABS: CREATININE 4.4 mg/dL (0.5-1.5); POTASSIUM 3.7 mmol/L (3.5-5.1)
[2019-10-30 04:00] VITALS: BP 122/71
--- NOTE | 2019-10-30 06:09 | NUR ---
PHYSICIAN PAGED TO INFORM OF POSITIVE AEROBIC BLOOD CULTURES, GRAM POSITIVE COCCI IN CLUSTERS. PENDING CALL BACK.
[2019-10-30 08:00] VITALS: BP 128/77
[2019-10-30] MEDS: ZOSYN 3.375GM+NS 50ML 50 ML IV SCH ×2 (09:54→20:33)
[2019-10-30] MEDS: FAMOTIDINE 20MG TAB 20 MG TAB PO SCH (09:55)
[2019-10-30] MEDS: HEPARIN SODIUM 5000UNIT/ML 1ML VIAL SQ SCH ×2 (09:55→20:34)
[2019-10-30 12:00] VITALS: BP 155/65
--- NOTE | 2019-10-30 15:08 | NUR ---
RD NOTIFICATION Pt admitted septic, Hemodialysis in place. Pt with Renal Dialysis Diet order in place. Pt underweight for age. Cl 95, BUN 32, Cr 4.4, GFR 11, BG 178, Ca 8.0, Alb 1.9. Recommend Nepro BID Recommend continue Renal dialysis diet order RD to continue to monitor. Please notify as additional nutrition concerns arise. Thank you.
--- NOTE | 2019-10-30 15:24 | NUR ---
DCP CM unable to meet w/pt, called son on facesheet, spoke to son Uriah Dominguez , discussed dc plans. Pt is independent prior to admission, lives at home with grandson. Pt has a walker. Denies any other equipments/services. Feels safe to go back home, daughter Gregoria Varghese and grandson able to assist with transportation and needs as necessary. PT uses [facility] for meds. DC plan to home once stable. CM to cont to follow up. Addendum: 10/30/19 at 1527 by HOLLIS CA LVN CM Amended: Links added.
[2019-10-30 16:30] VITALS: BP 165/62
[2019-10-30 20:30] VITALS: BP 110/62
[2019-10-31] VITALS (7 sets, daily range): BP systolic 111–164; BP diastolic 53–76
--- NOTE | 2019-10-31 05:56 | NUR ---
Refused Labs Pt refused AM lab draw stating she doesn't want it done and she is leaving today after her dialysis. Pt advised to have blood drawn for labs, pt still refused.
[2019-10-31] MEDS: FAMOTIDINE 20MG TAB 20 MG TAB PO SCH (08:43)
[2019-10-31] MEDS: ZOSYN 3.375GM+NS 50ML 50 ML IV SCH ×2 (08:43→19:48)
[2019-10-31] MEDS: HEPARIN SODIUM 5000UNIT/ML 1ML VIAL SQ SCH ×2 (08:44→19:48)
[2019-10-31 10:14] LABS: HEPATITIS A ANTIBODY IGM Negative (Negative); HEPATITIS B CORE IGM Negative (Negative); HEPATITIS Bs ANTIGEN SCREEN P Negative (Negative)
[2019-10-31 13:34] LABS: HEMATOCRIT 27.5 % (36-48); MEAN CORPUSCULAR HEMOGLOBIN 24.5 pg (27.0-33.0); MEAN CORPUSCULAR HGB CONC 33.1 g/dL (32.0-36.0); MEAN CORPUSCULAR VOLUME 73.9 fL (79-99); NUCLEATED RED BLOOD CELLS 21.1 % (0.0-0.19); PLATELET COUNT (AUTO) 187 K/uL (130-400); RED BLOOD CELL COUNT(AUTO) 3.72 MIL/uL (4.00-5.50); RED CELL DISTRIBUTION WIDTH 22.4 % (11.0-15.5)
[2019-10-31] MEDS: VANCOMYCIN 750MG + NS 250 ML IV SCH ×2 (13:43)
[2019-10-31 14:04] LABS: BAND NEUTROPHILS % (MANUAL) 1 % (0-2); BASOPHILS % (MANUAL) 1 % (0-2); EOSINOPHILS % (MANUAL) 4 % (1-6); LYMPHOCYTES % (MANUAL) 18 % (22-44); MAN.DIFF COMMENT-IMPRESSION MANUAL DIFFERENTIAL; MONOCYTES % (MANUAL) 6 % (2-9); PLATELET MORPHOLOGY COMMENT ADEQUATE; SEGMENTED NEUTROPHILS % 70 % (40-70)
[2019-10-31 19:07] LABS: APPEARANCE,URINE Clear (CLEAR); BILIRUBIN,URINE Small (NEGATIVE); COLOR,URINE Dark Yellow (YELLOW); GLUCOSE, URINE (UA) 500 mg/dL (NEGATIVE); KETONES,URINE Trace mg/dL (NEGATIVE); LEUKOCYTE ESTERASE ,URINE Trace (NEGATIVE); NITRATE,URINE Negative (NEGATIVE); OCCULT BLOOD,URINE Trace (NEGATIVE); PH,URINE 7.5 (5.0-8.0); PROTEIN,URINE >=1000 mg/dL (NEGATIVE)
[2019-10-31 19:28] LABS: COARSE GRANULAR CASTS,URINE 0-2 /LPF (None Seen)
[2019-10-31 19:31] LABS: BACTERIA,URINE Few /HPF (None Seen); MUCUS,URINE None Seen LPF (None Seen)
[2019-11-01 04:00] VITALS: BP 156/66
[2019-11-01 07:00] VITALS: BP 162/72
[2019-11-01] MEDS: ZOSYN 3.375GM+NS 50ML 50 ML IV SCH ×2 (09:26→20:11)
[2019-11-01] MEDS: FAMOTIDINE 20MG TAB 20 MG TAB PO SCH (09:26)
[2019-11-01] MEDS: HEPARIN SODIUM 5000UNIT/ML 1ML VIAL SQ SCH ×2 (10:10→20:14)
[2019-11-01 11:00] VITALS: BP 159/72
[2019-11-01 16:00] VITALS: BP 178/79
[2019-11-01 20:48] VITALS: BP 145/68
[2019-11-01 23:27] VITALS: BP 146/68
[2019-11-02 03:35] VITALS: BP 159/78
[2019-11-02 03:49] LABS: BASOPHILS % (AUTO) 0.6 % (0.0-5.0); EOSINOPHILS % (AUTO) 2.5 % (0.0-8.0); HEMATOCRIT 28.2 % (36-48); LYMPHOCYTES % (AUTO) 9.3 % (21.0-51.0); MEAN CORPUSCULAR HEMOGLOBIN 24.2 pg (27.0-33.0); MEAN CORPUSCULAR HGB CONC 32.6 g/dL (32.0-36.0); MEAN CORPUSCULAR VOLUME 74.2 fL (79-99); MONOCYTES % (AUTO) 5.6 % (3.0-13.0); NEUTROPHILS % (AUTO) 76.9 % (40.0-77.0); NUCLEATED RED BLOOD CELLS 8.5 % (0.0-0.19); PLATELET COUNT (AUTO) 131 K/uL (130-400); RED CELL DISTRIBUTION WIDTH 22.9 % (11.0-15.5); WHITE BLOOD COUNT (AUTO) 8.7 K/uL (4.8-10.8)
[2019-11-02 04:00] LABS: CREATININE 7.3 mg/dL (0.5-1.5); POTASSIUM 3.3 mmol/L (3.5-5.1)
[2019-11-02 08:30] VITALS: BP 163/68
[2019-11-02] MEDS: FAMOTIDINE 20MG TAB 20 MG TAB PO SCH (08:58)
[2019-11-02] MEDS: ZOSYN 3.375GM+NS 50ML 50 ML IV SCH (08:58)
[2019-11-02] MEDS: HEPARIN SODIUM 5000UNIT/ML 1ML VIAL SQ SCH (08:59)
--- NOTE | 2019-11-02 12:46 | NUR ---
CM NOTE/[facility] POSSIBLE DISCHARGE HOME TODAY PER DR. Inessa GIBSON. [facility] CALLED TO REPORT COVID POSITIVE PCR. PER SABRINA, PATIENT WAS GOING TO [facility] AND CAN RETURN BUT WILL HAVE TO HAVE SCHEDULE CHANGED D/T COVID POSITIVE. REQUEST FOR H&P, AND COVID19 RESULT TO BE SENT, FAXED TO [facility]. PRIMARY NURSE, ROLDAN AGUIRRE, MADE AWARE OF POSSIBLE CHANGED TO AND TO INFORM DIALYSIS NURSE IN PATIENT ROOM THAT PATIENT WILL NEED TO CHANGED SCHEDULED FROM MWF TO TTS. NURSE, ROLDAN AGUIRRE, VERBALIZED UNDERSTANDING. POSSIBLE DISCHARGE HOME TODAY AND RETURN TO DIALYSIS CENTER TOMORROW.
[2019-11-02 12:59] VITALS: BP 125/81
--- NOTE | 2019-11-02 17:51 | NUR ---
Pt A+Ox3. Iv removed , Pt discharged instructions given and explained to patient. Pt verbalized understanding. Pt wheelchaired to front where family is awaiting. No complaints offered
== END 2019-11-02 18:00 | disposition home or self-care (01) | DRG 871 ==
LOC: EDH 10:46 → EDHIP 14:06 → OBSVTOIN 14:06 → 3BH 22:21 → 4AH 10-30 13:50
PROVIDERS: ADMIT Internal Medicine Critical Care Medicine; ATTEND Internal Medicine Critical Care Medicine
PROC: 30233N1 Transfusion of Nonautologous Red Blood Cells into Peripheral Vein, Percutaneous Approach (ICD-10-PCS; principal; 2019-10-29)
PROC: 5A1D70Z Performance of Urinary Filtration, Intermittent, Less than 6 Hours Per Day (ICD-10-PCS; 2019-10-29)
PROC: 5A1D70Z Performance of Urinary Filtration, Intermittent, Less than 6 Hours Per Day (ICD-10-PCS; 2019-10-31)
DX: A41.89 Other specified sepsis (principal); U07.1 COVID-19; J12.89 Other viral pneumonia; N18.6 End stage renal disease; E43 Unspecified severe protein-calorie malnutrition; Z68.1 Body mass index [BMI] 19.9 or less, adult; I12.0 Hypertensive chronic kidney disease with stage 5 chronic kidney disease or end stage renal disease; R65.20 Severe sepsis without septic shock; E87.5 Hyperkalemia; B96.89 Other specified bacterial agents as the cause of diseases classified elsewhere; D63.8 Anemia in other chronic diseases classified elsewhere; E11.22 Type 2 diabetes mellitus with diabetic chronic kidney disease; R62.7 Adult failure to thrive; Z74.01 Bed confinement status; Z82.49 Family history of ischemic heart disease and other diseases of the circulatory system; Z83.3 Family history of diabetes mellitus; Z99.2 Dependence on renal dialysis; Z79.899 Other long term (current) drug therapy; R53.81 Other malaise
CPT/HCPCS: 36415; 71045; 80048; 80053; 80074; 81001; 82550; 82728; 82948; 83605; 83874; 84145; 84484; 85025; 85610; 85730; 86850; 86900; 86901; 86922; 87040; 87077; 87088; 87186; 87426; 90935; 93005; 93306; 93356; 97039; G0378; J1644; J2405; J2543; J2920; J3370; J7050; P9016; U0003

== ENCOUNTER → 2019-12-18 | Outpatient (CLI) | payer OTHER | END | disposition home or self-care (01) | LOC: OIH 08:15 | PROVIDERS: ATTEND Family Medicine | DX: R06.02 Shortness of breath (principal); M47.815 Spondylosis without myelopathy or radiculopathy, thoracolumbar region | CPT/HCPCS: 71046 ==

== ENCOUNTER 2020-07-28 16:25 | Emergency (ER) | payer OTHER ==
[~2020-07-28 16:25] MED LIST changes: +AMLO-257 PO; -AMLO5TAB9 PO
[2020-07-28 16:50] LABS: BASOPHILS % (AUTO) 0.5 % (0.0-5.0); EOSINOPHILS % (AUTO) 1.4 % (0.0-8.0); HEMATOCRIT 27.9 % (36-48); LYMPHOCYTES % (AUTO) 19.6 % (21.0-51.0); MEAN CORPUSCULAR HEMOGLOBIN 23.8 pg (27.0-33.0); MEAN CORPUSCULAR HGB CONC 31.5 g/dL (32.0-36.0); MEAN CORPUSCULAR VOLUME 75.6 fL (79-99); MONOCYTES % (AUTO) 10.7 % (3.0-13.0); NEUTROPHILS % (AUTO) 67.3 % (40.0-77.0); NUCLEATED RED BLOOD CELLS 1.3 % (0.0-0.19); PLATELET COUNT (AUTO) 192 K/uL (130-400); RED BLOOD CELL COUNT(AUTO) 3.69 MIL/uL (4.00-5.50); RED CELL DISTRIBUTION WIDTH 18.6 % (11.0-15.5); WHITE BLOOD COUNT (AUTO) 6.2 K/uL (4.8-10.8)
[2020-07-28 17:00] LABS: CREATININE 4.5 mg/dL (0.5-1.5); POTASSIUM 3.4 mmol/L (3.5-5.1)
[2020-07-28 17:05] LABS: BILIRUBIN,TOTAL 1.6 mg/dL (0.2-1.0); TOTAL PROTEIN, SERUM 6.8 g/dL (6.0-8.3)
[2020-07-28 17:12] LABS: B-TYPE NATRIURETIC PEPTIDE 2750 pg/mL (0-100)
[2020-07-28] MEDS ORDERED: ACETAMINOPHEN 325 MG TAB ONE (21:22)
== END 2020-07-28 21:29 | disposition home or self-care (01) ==
LOC: EDH 16:25
DX: R42 Dizziness and giddiness (principal); R53.1 Weakness; R51.9 Headache, unspecified; I12.0 Hypertensive chronic kidney disease with stage 5 chronic kidney disease or end stage renal disease; E11.22 Type 2 diabetes mellitus with diabetic chronic kidney disease; N18.6 End stage renal disease; Z99.2 Dependence on renal dialysis
CPT/HCPCS: 36415; 70450; 71045; 80053; 83880; 84484; 85025; 93005

== ENCOUNTER → 2020-08-07 | Outpatient (CLI) | payer OTHER | END | disposition home or self-care (01) | LOC: OIH 15:26 | PROVIDERS: ATTEND Family Medicine | DX: J44.9 Chronic obstructive pulmonary disease, unspecified (principal); I89.8 Other specified noninfective disorders of lymphatic vessels and lymph nodes | CPT/HCPCS: 71046 ==